=== PATIENT | female | born 1945 | race Caucasian/White ===

== ENCOUNTER → 2022-07-01 | Day surgery (SDC) | payer MEDICARE ==
[~2022-07-01] VITALS: Ht 167.6 cm; Wt 65.0 kg
[~2022-07-01] MED LIST: ASPIRIN CHEWABL81 MG PO; CALTRATE GUMMY1 EACH PO; CENTRUM SILVER1 EAC1 PO; CINNAMON500 MG PO; EMERGEN-C 500500 MG PO; FISH OIL 500 M1 EAC3 PO; LOVAZA1 GM PO; MUCINEX 600MG600 MG PO; NEURONTIN300 MG PO; PEPCID AC20 MG PO; PERCOCET 5-3251 EACH PO; PHENERGAN25 M1 PO; VICODIN 5-3001 EACH PO; VITAMIN D-32000 UNIT PO; VITAMIN E400 UNI1 PO
== END | disposition home or self-care (01) ==
LOC: FAS 12:24
DX: Z12.11 Encounter for screening for malignant neoplasm of colon (principal); K31.9 Disease of stomach and duodenum, unspecified; K63.5 Polyp of colon; K31.7 Polyp of stomach and duodenum; K57.30 Diverticulosis of large intestine without perforation or abscess without bleeding; K64.8 Other hemorrhoids; K21.9 Gastro-esophageal reflux disease without esophagitis; Z88.8 Allergy status to other drugs, medicaments and biological substances
CPT/HCPCS: J2250; J7120